=== PATIENT | female | born 1935 | race Caucasian/White ===

== ENCOUNTER → 2018-05-04 | Outpatient (CLI) | payer MEDICARE ==
[2018-05-04 15:54] LABS: HCT 39.5 % (34.0-46.0); HGB 12.6 gm/dL (11.4-16.0); MCH 26.8 pg (25.0-35.0); MCHC 31.8 g/dL (31.0-37.0); MCV 84.3 fL (80.0-100.0); Mean Platelet Volume 7.6; Platelet Count 270 k/uL (150-450); RBC 4.68 m/uL (3.80-5.40); RDW 13.7 % (11.5-15.5); WBC 6.5 k/uL (3.8-10.6)
[2018-05-04 16:07] LABS: Partial Thromboplastin Time 24.9 sec (22.0-30.0); Prothrombin Time 10.1 sec (9.0-12.0)
[2018-05-04 16:08] LABS: Appearance,Urine Clear (Clear); Bilirubin,Urine Negative (Negative); Blood,Urine Negative (Negative); Color,Urine Light Yellow; Glucose,Urine (UA) Negative (Negative); Ketones,Urine Negative (Negative); Leukocyte Esterase,Urine Negative (Negative); Nitrite,Urine Negative (Negative); Protein,Urine Negative (Negative); Specific Gravity,Urine 1.007 (1.001-1.035); Urobilinogen,Urine <2.0 mg/dL (<2.0)
[2018-05-04 16:12] LABS: Albumin 4.3 g/dL (3.5-5.0); Calcium 9.7 mg/dL (8.4-10.2); Potassium 5.3 mmol/L (3.5-5.1); Total Bilirubin 0.3 mg/dL (0.2-1.3); Total Protein 8.1 g/dL (6.3-8.2)
== END | disposition home or self-care (01) ==
LOC: LABPAT 14:55
PROVIDERS: ATTEND Orthopaedic Surgery
DX: Z01.818 Encounter for other preprocedural examination (principal); Z01.812 Encounter for preprocedural laboratory examination
CPT/HCPCS: 80053; 81003; 85027; 85610; 85730; 87070; 93005

== ENCOUNTER → 2018-05-18 | Outpatient (CLI) | payer MEDICARE ==
--- NOTE | 2018-05-18 12:32 | ECHOF ---
Referral Reason:R94.31 abnormal EKG MEASUREMENTS -------- HEIGHT: 157.5 cm WEIGHT: 56.7 kg BP: RVIDd: 2.3 cm (< 3.3) IVSd: 1.2 cm (0.6 - 1.1) LVIDd: 3.5 cm (3.9 - 5.3) LVPWd: 1.3 cm (0.6 - 1.1) IVSs: 1.4 cm LVIDs: 2.2 cm LVPWs: 1.2 cm LA Diam: 3.1 cm (2.7 - 3.8) LAESV Index (A-L): 26.53 ml/m Ao Diam: 3.3 cm (2.0 - 3.7) AV Cusp: 2.0 cm (1.5 - 2.6) LA Diam: 3.2 cm (2.7 - 3.8) MV EXCURSION: 11.540 mm (> 18.000) MV EF SLOPE: 46 mm/s (70 - 150) EPSS: 0.6 cm MV E Chas: 0.55 m/s MV DecT: 380 ms MV A Chas: 1.15 m/s MV E/A Ratio: 0.47 AR PHT: 699 ms RAP: 5.00 mmHg RVSP: 30.63 mmHg FINDINGS -------- Sinus rhythm. This was a technically good study. The left ventricular size is normal. There is mild concentric left ventricular hypertrophy. Overa ll left ventricular systolic function is low-normal with, an EF between 50 - 55 %. The right ventricle is normal in size. The left atrial size is normal. The right atrial size is normal. There is moderate aortic valve sclerosis. There is moderate aortic regurgitation. The mitral valve leaflets are mild to moderately thickened. Mild mitral annular calcification pres ent. Mild mitral regurgitation is present. Mild tricuspid regurgitation present. There is no evidence of pulmonary hypertension. The right v entricular systolic pressure, as measured by Doppler, is 30.63mmHg. There is no pulmonic regurgitation present. The aortic root size is normal. There is no pericardial effusion. CONCLUSIONS -------- 1. Sinus rhythm. 2. The left ventricular size is normal. 3. There is mild concentric left ventricular hypertrophy. 4. Overall left ventricular systolic function is low-normal with, an EF between 50 - 55 %. 5. The left atrial size is normal. 6. There is moderate aortic valve sclerosis. 7. There is moderate aortic regurgitation. 8. The mitral valve leaflets are mild to moderately thickened. 9. Mild mitral annular calcification present. 10. Mild mitral regurgitation is present. 11. Mild tricuspid regurgitation present. 12. There is no evidence of pulmonary hypertension. 13. There is no pulmonic regurgitation present. 14. The aortic root size is normal. 15. There is no pericardial effusion. RN QUALITY: Guera Duke RDCS
== END | disposition home or self-care (01) ==
LOC: RADECHMAIN 07:10
PROVIDERS: ATTEND Family Medicine
DX: I08.3 Combined rheumatic disorders of mitral, aortic and tricuspid valves (principal)
CPT/HCPCS: 93306

== ENCOUNTER 2018-05-23 08:22 | Inpatient (IN) | payer MEDICARE ==
[2018-05-16 14:55] VITALS: BMI 22.8
[~2018-05-23 08:22] MED LIST: ACETAMINOPHEN TAB 500 MG TAB PO ONE; DEXAMETHASONE SOD PHOSPHATE 10 MG/ML 1 ML VIAL IV ONE; LIDOCAINE 1% 20 ML VIAL (10MG/ML) FOR IV START INTRADERMA PRN; MELOXICAM 7.5 MG TAB PO ONE; ONDANSETRON 4 MG/2 ML VIAL IVP ONE; ROPIVACAINE 246.25 MG, EPINEPHrine 0.5 MG, KETOROLAC 30 MG, cloNIDine HCL/PF 80 MCG, WA... MISCELLANE ONE; TRANEXAMIC ACID 1,000 MG in SODIUM CHLORIDE 0.9% 50 ML IVPB ONE; ceFAZolin IN SWFI 2 GM/20 ML SYRINGE IVP ONE; fentaNYL (PF) 50 MCG/ML 2 ML AMP IV PRN
[2018-05-23] MEDS: LACTATED RINGERS 1,000 ML IV SCH (08:50)
[2018-05-23] MEDS ORDERED: SODIUM CHLORIDE 0.9% 100 ML BAG ONE (11:06)
[2018-05-23] MEDS ORDERED: fentaNYL (PF) 50 MCG/ML 2 ML AMP ONE (11:06)
[2018-05-23] MEDS ORDERED: MIDAZOLAM 2 MG/2 ML VIAL ONE (11:06)
[2018-05-23] MEDS ORDERED: ePHEDrine SULFATE/0.9% NACL/PF 50 MG/5 ML SYRINGE IV ONE (11:06)
[2018-05-23] MEDS ORDERED: TRANEXAMIC ACID 1,000 MG/10 ML VIAL ONE (11:06)
[2018-05-23] MEDS ORDERED: ceFAZolin 3,000 MG in SODIUM CHLORIDE 0.9% IRRIGATIO 3,000 ML IRRIGATION ONE (11:40)
[2018-05-23] MEDS ORDERED: LACTATED RINGERS 1,000 ML IV ONE (12:16)
--- NOTE | 2018-05-23 12:27 | P.OP ---
Date of Procedure: 05/23/18 Preoperative Diagnosis: Severe osteoarthritis right hip Postoperative Diagnosis: Severe osteoarthritis right hip Procedure(s) Performed: Right total hip arthroplasty with a direct anterior approach Implants: Rose and nephew Polarstem size 3 standard Rose & Nephew R3, 3 hole acetabular shell, 48 mm Rose & Nephew reflection 6.5 mm cancellus screw, 20 mm 2 Rose & Nephew R3, XLPE 20 acetabular liner Rose & Nephew Oxinium femoral head 32 m, +0 All components were press-fit. The articulation is Oxinium on polyethylene. Anesthesia: spinal Surgeon: Froy Collins Monument Setter Helper #1: Priya Arriaga Estimated Blood Loss (ml): 200 Pathology: other (Femoral head) Condition: stable Disposition: PACU Indications for Procedure: After failure of conservative treatment we discussed the surgical and nonsurgical treatment options at length. Patient wishes to proceed with a total hip arthroplasty with a direct anterior approach. Complications specific to this procedure were discussed at length, including but not limited to infection, leg length discrepancy, dislocation, and nerve injury. Patient is aware of all these complications and informed consent was obtained Operative Findings: The operative findings are consistent with severe osteoarthritis of the right hip Description of Procedure: Patient was seen and evaluated in the preoperative area, consent was reviewed, and the surgical site was marked with a skin marker. Patient was then brought to the operating room and given prophylactic antibiotics intravenously. 1 g of Tranexamic acid was also given. A spinal anesthetic was administered by the anesthesia department. The patient was then placed on the Nunn table with the bony prominences well-padded. The hip area was then prepped and draped in usual sterile fashion. A universal timeout was then performed, which confirmed the patient's name, surgical site, ALLERGIES, and procedure being performed. Next the incision site was located at 1 cm distal and 1 cm lateral to the anterior superior iliac spine. The skin and subcutaneous tissues were sharply incised. Incision was carefully dissected down to the fascia overlying the tensor fascia harjit muscle. This fascia was then incised in line with the incision. Next, using blunt finger dissection, the tensor fascia harjit muscle was dissected off its investing fascia. The muscle was then carefully retracted laterally with a cobra retractor over the lateral neck of the femur. Next, the circumflex vessels were identified and cauterized using the AquaMantis device. The anterior hip capsule was then exposed. The capsule was then opened and an inverted T fashion. Cobra retractors were then placed intracapsularly. The proximal femur was then visualized. The femoral neck was then osteotomized appropriate level above the lesser trochanter. Small amount of traction was placed with the Nunn table. A small wedge of bone was then removed from the remaining femoral head. Next, using a corkscrew femoral head was easily removed from the acetabulum. On gross visual inspection, the femoral head had complete loss of articular cartilage in multiple periarticular osteophytes. Attention was then turned to the acetabulum. the acetabulum was exposed and any remaining labrum was excised. Sequential reaming of the acetabulum was performed using fluoroscopic guidance. When the appropriate size was reached, a trial was then placed. The position and fit of the trial was checked with fluoroscopy. The trial was then removed. Then, using fluoroscopic guidance, the final implant was impacted at 20 of anteversion and 40 of abduction, and fully seated in the acetabulum. 2 screws were then placed in the acetabulum. Again fluoroscopy was used to check position of the screws. Next, the liner was then impacted, with a 20 elevated liner located in the anterior superior quadrant. Component locking was confirmed. Attention was then directed to the femur. With the aid of the Nunn table, the femur was externally rotated to approximately 130, extended, and abducted under the opposite leg. A side hook was then placed under the proximal femur, and the side hook elevator was used to elevate the proximal femur. Retractors were then placed. A capsular release was performed, as well as a release of the conjoined tendon, which afforded excellent visualization of the proximal femur. Next, a box osteotome was used to lateralize the proximal femur. A displayer merchandise was then used to locate the femoral canal. Sequential broaching was then performed with appropriate size which afforded excellent fixation in the proximal femur. A trial was then placed with appropriate head and neck, and the hip was gently reduced with the aid of the Nunn table. Fluoroscopy was then used to check position of the components, as well as to ensure equal leg lengths. The hip was then gently dislocated and the trials were then removed. Final implants were then impacted and the hip was again reduced. Final fluoroscopic x-rays confirmed that the components were in anatomic position, as well as equal leg lengths. The hip was also taken through range of motion, and found to be stable. The hip was then copiously irrigated with antibiotic solution with pulsatile lavage. The hip was then irrigated with Irrisept solution. The soft tissues were then injected with a ropivacaine solution, which consisted of 246.25 mg of ropivacaine, 0.5 mg of epinephrine, 30 mg of Toradol, 80 g of clonidine, and 48.45 mL of sterile water, for a total of 100 mL of fluid injected. A second dose of 1 g of Tranexamic acid was also given. the fascia was then closed with 2-0 strata fix suture. The subcutaneous tissue was closed with 3-0 Vicryl. The subcuticular tissue was closed with 3-0 strata fix suture. The skin was then closed with Dermabond glue and a sterile silver dressing. The patient was then transferred to the recovery room in stable condition. The recreation assistant MARYCHUY Olson was required due to the complexity of surgery, and the need for skilled virtual customer assistant for positioning, draping, exposure, retraction, and closure of the wound.
--- NOTE | 2018-05-23 12:50 | XR ---
Fluoroscopy INDICATION: Pain FINDINGS: Fluoroscopy time: 41 seconds. Images obtained: 4. IMPRESSIONS: 1. Documentation of fluoroscopy.
[2018-05-23] MEDS ORDERED: NALOXONE 0.4 MG/ML 1 ML VIAL IV PRN (12:54)
[2018-05-23] MEDS ORDERED: HYDROcodone/APAP 5-325MG 1 EACH TAB PO PRN (12:54)
[2018-05-23] MEDS ORDERED: HYDROmorphone 1 MG/ML 1 ML SYRINGE IVP PRN ×3 (12:54)
[2018-05-23] MEDS ORDERED: MAGNESIUM HYDROXIDE 2,400 MG/10 ML CUP PO PRN (12:54)
[2018-05-23] MEDS ORDERED: hydrOXYzine PAMOATE 25 MG CAP PO PRN (12:54)
[2018-05-23] MEDS ORDERED: DIAZEPAM 5 MG TAB PO PRN ×2 (12:54)
[2018-05-23] MEDS ORDERED: ONDANSETRON 4 MG/2 ML VIAL IVP PRN (12:54)
--- NOTE | 2018-05-23 13:43 | XR ---
EXAMINATION TYPE: XR Hip Limited RT DATE OF EXAM: 05/23/2018 COMPARISON: None HISTORY: Postop right hip TECHNIQUE: AP right hip FINDINGS: No acute fractures are evident. Postsurgical changes are present. Right hip prosthesis has been placed. IMPRESSION: 1. No fractures post hip replacement
[2018-05-23] MEDS: SODIUM CHLORIDE 0.9% 1,000 ML IV SCH (16:46)
--- NOTE | 2018-05-23 18:40 | P.CONS ---
History of Present Illness - Reason for Consult Consult date: 05/23/18 HTN Requesting physician: Froy Collins - Chief Complaint right hip pain - History of Present Illness Patient is an 82-year-old female with a history of hypertension, arthritis, bladder weakness, and intermittent vertigo who presented to the hospital for an elective right total hip arthroplasty. She had underwent an anterior approach right total hip arthroplasty on 05/23 without any immediate postoperative complications. Patient seen and examined at bedside. Her pain is well controlled after surgery. She denies any nausea or shortness of breath. She had has been noticing right hip pain for the last several years which has increased in the last couple of months. She then noticed decreased strength in her right lower extremity which prompted her to undergo a course of physical therapy. This did not help so she elected operative repair. She has been taking as needed Tylenol at home but states she's only taken 2 doses in the last 2 weeks. She is very sensitive to medications. She denies any recent cough, cold, fever, flu , chest pain, shortness of breath, nausea, vomiting, diarrhea, or constipation. She does have chronic bladder weakness but no dysuria, malodorous urine, or dark urine. She follows with Dr. Barnes out of [place]. She last saw him one week prior to surgery. Review of Systems Pertinent positives and negatives as discussed in HPI, a complete review of systems was performed and all other systems are negative. Past Medical History Past Medical History: Hypertension, Osteoarthritis (OA) Additional Past Medical History / Comment(s): hx. rheumatic fever as a child, occasional vertigo, arthritis, bladder weakness History of Any Multi-Drug Resistant Organisms: None Reported Past Surgical History: Tonsillectomy Additional Past Surgical History / Comment(s): cataract surg, right total hip arthroplasty-anterior approach Past Anesthesia/Blood Transfusion Reactions: No Reported Reaction Past Psychological History: No Psychological Hx Reported Smoking Status: Never smoker Past Alcohol Use History: None Reported Past Drug Use History: None Reported Additional History: Lives alone, no assistive devices, along with 1/2 mile from her house. - Past Family History Father Family Medical History: Cancer Medications and Allergies Home Medications Medication Instructions Recorded Confirmed Type Aspirin 81 mg PO DAILY 05/16/18 05/23/18 History Atenolol [Tenormin] 100 mg PO DAILY 05/16/18 05/23/18 History Cholecalciferol [Vitamin D3] 1,000 unit PO DAILY 05/16/18 05/23/18 History Meclizine [Antivert] 25 mg PO DAILY PRN 05/16/18 05/23/18 History Niacin 100 mg PO DAILY 05/16/18 05/23/18 History amLODIPine [Norvasc] 2.5 mg PO DAILY 05/16/18 05/23/18 History Allergies Allergy/AdvReac Type Severity Reaction Status Date / Time doxycycline Allergy Rash/Hives Verified 05/23/18 08:36 Physical Exam Osteopathic Statement: *. No significant issues noted on an osteopathic structural exam other than those noted in the History and Physical/Consult. Vitals: Vital Signs Temp Pulse Pulse Resp BP Pulse Ox 05/23/18 15:36 97.5 F L 73 16 133/70 91 L 05/23/18 14:50 67 18 119/61 96 05/23/18 14:35 66 18 108/58 97 05/23/18 14:05 66 18 109/58 97 05/23/18 13:50 70 18 104/54 97 05/23/18 13:35 69 18 110/57 99 05/23/18 13:20 62 16 115/58 96 05/23/18 13:05 66 16 113/54 99 05/23/18 12:50 98.2 F 67 12 124/58 100 05/23/18 08:42 97.7 F 69 16 180/89 96 Intake and Output 05/23/18 05/23/18 05/23/18 06:59 14:59 22:59 Intake Total 1101 750 Output Total 200 Balance 901 750 Intake: IV 1101 750 Output: Estimated Blood Loss 200 Other: Weight 56.699 kg General: non toxic, no distress, appears younger than stated age, normal weight Derm: Dressing in place over right hip no unusual rashes/lesions no unusual ecchymoses, warm, dry Head: atraumatic, normocephalic, symmetric Eyes: EOMI, no lid lag, anicteric sclera, pupils equal round reactive to light ENT: Nose and ears atraumatic, no thrush, no pharyngeal erythema Neck: No thyromegaly, no cervical lymphadenopathy, trachea midline, supple Mouth: no lip lesion, mucus membranes moist Cardiovascular: S1S2 reg, no murmur, positive posterior tibial pulse bilateral, no edema, capillary refill less than 2 seconds Lungs: CTA bilateral, no rhonchi, no rales , no accessory muscle use Abdominal: soft, nontender to palpation, no guarding, no appreciable organomegaly, normal bowel sounds Ext: no gross muscle atrophy, strength 5 out of 5 in bilateral upper extremities , strength 5 out of 5 in left lower extremity, not tested in right lower extremity secondary to recent surgery, no contractures, Neuro: CN II-XI grossly intact, light touch intact all 4 extremities, finger to nose within normal limits, Psych: Alert, oriented, appropriate affect Results CBC & Chem 7: 05/23/18 08:48 Comments: Preoperative blood work were reviewed. Hemoglobin 12.6. Hematocrit 39.5. Platelets 270 Assessment and Plan Assessment: Osteoarthritis -Status post anterior approach right total hip arthroplasty -Pain control -Antiemetics -PT/OT -DVT prophylaxis per orthopedic surgery -Bowel regiment Hypertension, controlled -Follow blood pressures -Resume home Norvasc and atenolol DVT prophylaxis: Aspirin 325 mg twice a day Discussed with: pt, Nursing Anticipated discharge: 24-[address]: Home with home health A total of 45 minutes was spent on the care of this complex patient more than 50 % of the time was spent in counseling and care coordination.
[2018-05-23] MEDS: HYDROcodone/APAP 5-325MG 1 EACH TAB PO PRN (19:02)
[2018-05-23] MEDS: ceFAZolin IN SWFI 2 GM/20 ML SYRINGE IVP SCH (19:02)
[2018-05-23] MEDS: ASPIRIN 325 MG TAB PO SCH (20:50)
[2018-05-23] MEDS ORDERED: SENNOSIDES-DOCUSATE SODIUM 1 EACH TAB PO SCH (21:00)
[2018-05-24] MEDS: ceFAZolin IN SWFI 2 GM/20 ML SYRINGE IVP SCH (03:15)
[2018-05-24] MEDS: SODIUM CHLORIDE 0.9% 1,000 ML IV SCH (07:31)
[2018-05-24] MEDS: LACTATED RINGERS 1,000 ML IV SCH (07:32)
[2018-05-24 07:41] VITALS: BP 109/59; PULSE 68; RESP 16; TEMP 97.4
[2018-05-24 07:52] LABS: Basophils % (A) 0 %; Eosinophils % (A) 0 %; HCT 29.1 % (34.0-46.0); HGB 9.5 gm/dL (11.4-16.0); Lymphocytes # (A) 1.1 k/uL (1.0-4.8); Lymphocytes % (A) 11 %; MCH 28.2 pg (25.0-35.0); MCHC 32.8 g/dL (31.0-37.0); MCV 85.9 fL (80.0-100.0); Mean Platelet Volume 8.4; Monocytes # (A) 0.6 k/uL (0-1.0); Monocytes % (A) 6 %; Neutrophils # (A) 7.9 k/uL (1.3-7.7); Neutrophils % (A) 81 %; Platelet Count 199 k/uL (150-450); RBC 3.39 m/uL (3.80-5.40); RDW 13.7 % (11.5-15.5); WBC 9.8 k/uL (3.8-10.6)
[2018-05-24 07:56] LABS: Calcium 8.4 mg/dL (8.4-10.2); Potassium 4.7 mmol/L (3.5-5.1)
--- NOTE | 2018-05-24 08:39 | P.DS ---
Providers Date of admission: 05/23/18 08:22 Expected date of discharge: 05/24/18 Attending physician: Froy Collins Consults: 05/23/18 12:54 Consult Physician Routine Consulting Provider: Kimi Skinner Consult Reason/Comments: medical management Do you want consulting provider notified?: Already Contacted Primary care physician: Leisa Rmoero - Discharge Diagnosis(es) (1) Primary osteoarthritis of right hip Current Visit: Yes Status: Acute (2) S/P total hip arthroplasty Current Visit: Yes Status: Acute Hospital Course: This is a 82-year-old female with known history of degenerative arthritis of the right hip. The patient presents for evaluation. After discussion and consideration patient elects to proceed with total hip arthroplasty. The patient is seen preoperatively by Dr. Collins and medically cleared for surgery by their primary care physician. Patient is admitted to [facility] on 05/23/2018 for total hip arthroplasty. The procedures performed without complication or sequelae. The patient is doing well postoperatively. Labs and vital signs are stable on day of discharge. On day of discharge patient's hip incision is healing well. There is minimal erythema. There is no drainage noted at this time. There is minimal soft tissue swelling to the hip and thigh. Patient has full foot and ankle motion without difficulty or pain. Neurovascular status to the right lower extremity is intact. Patient is discharged home in good condition. Please see med rec for accurate list of home medications. Plan - Discharge Summary Discharge Rx Participant: No New Discharge Prescriptions: New Aspirin 325 mg PO BID #60 tab Sennosides [Senokot] 1 tab PO BID #60 tablet HYDROcodone/APAP 5-325MG [[place] 5-325] 1 - 2 tab PO Q4-6H PRN #84 tab PRN Reason: Pain No Action Cholecalciferol [Vitamin D3] 1,000 unit PO DAILY amLODIPine [Norvasc] 2.5 mg PO DAILY Atenolol [Tenormin] 100 mg PO DAILY Aspirin 81 mg PO DAILY Niacin 100 mg PO DAILY Meclizine [Antivert] 25 mg PO DAILY PRN PRN Reason: Vertigo Discharge Medication List Aspirin 81 mg PO DAILY 05/16/18 [History] Atenolol [Tenormin] 100 mg PO DAILY 05/16/18 [History] Cholecalciferol [Vitamin D3] 1,000 unit PO DAILY 05/16/18 [History] Meclizine [Antivert] 25 mg PO DAILY PRN 05/16/18 [History] Niacin 100 mg PO DAILY 05/16/18 [History] amLODIPine [Norvasc] 2.5 mg PO DAILY 05/16/18 [History] Aspirin 325 mg PO BID #60 tab 05/24/18 [Rx] HYDROcodone/APAP 5-325MG [[place] 5-325] 1 - 2 tab PO Q4-6H PRN #84 tab 05/24/18 [ Rx] Sennosides [Senokot] 1 tab PO BID #60 tablet 05/24/18 [Rx] Follow up Appointment(s)/Referral(s): Froy Collins DO [Doctor of Osteopathic Medicine] - 2 Weeks Activity/Diet/Wound Care/Special Instructions: Weightbearing as tolerated with walker Leave dressing intact. Dressing may be removed by home care nurse in 10 days. May shower with dressing on. Follow-up with [facility] in 2 weeks, please call with any questions or concerns [phone] Discharge Disposition: HOME WITH HOME HEALTH SERVICES
[2018-05-24] MEDS ORDERED: amLODIPine 2.5 MG TAB PO SCH (09:00)
[2018-05-24] MEDS ORDERED: ATENOLOL 50 MG TAB PO SCH (09:00)
[2018-05-24] MEDS ORDERED: MELOXICAM 7.5 MG TAB PO SCH (09:00)
[2018-05-24] MEDS: ASPIRIN 325 MG TAB PO SCH (09:02)
[2018-05-24] MEDS: HYDROcodone/APAP 5-325MG 1 EACH TAB PO PRN (09:02)
--- NOTE | 2018-05-24 09:31 | P.PN ---
Subjective Progress Note Date: 05/24/18 Principal diagnosis: hip pain Patient is an 82-year-old female with a history of hypertension, arthritis, bladder weakness, and intermittent vertigo who presented to the hospital for an elective right total hip arthroplasty. She had underwent an anterior approach right total hip arthroplasty on 05/23 without any immediate postoperative complications. Seen and examined at bedside. She is feeling well. She is already on drops and has ambulated with physical therapy. Pain is well controlled. No nausea, vomiting, chest pain, or shortness of breath. Still has not had a bowel movement since surgery. We discussed that her blood pressure was slightly low this morning. I have given her instructions to take her blood pressure every morning prior to taking her medications. If her blood pressure is less than 120 she will only take her atenolol. If is greater than 120 she'll take both her atenolol and Norvasc. She will also take 14 days old sulfate 325 mg to help replete her iron answer hemoglobin is 9.5 postoperatively. Objective - Vital Signs Vital signs: Vital Signs Temp 97.4 F L 05/24/18 07:40 Pulse 68 05/24/18 07:40 Resp 16 05/24/18 07:40 BP 109/59 05/24/18 07:40 Pulse Ox 97 05/24/18 07:40 Intake & Output 05/23/18 05/24/18 05/24/18 18:59 06:59 18:59 Intake Total 1851 1725 Output Total 200 Balance 1651 1725 Weight 56.699 kg Intake: IV 1851 Intake, IV Titration 975 Amount Sodium Chloride 0.9% 1, 975 000 ml @ 65 mls/hr IV . [id number] ON LICENSE OF [facility] Rx#:[id number] Oral 750 Output: Estimated Blood Loss 200 Other: Voiding Method Toilet Toilet # Voids 2 - Exam General: non toxic, no distress, appears younger than stated age Derm: warm, dry Head: atraumatic, normocephalic, symmetric Eyes: EOMI, no lid lag, anicteric sclera Mouth: no lip lesion, mucus membranes moist Cardiovascular: S1S2 reg, no murmur, positive posterior tibial pulse bilateral, Lungs: CTA bilateral, no rhonchi, no rales , no accessory muscle use Abdominal: soft, nontender to palpation, no guarding, no appreciable organomegaly Ext: no gross muscle atrophy, no edema, no contractures Neuro: CN II-XI grossly intact, no focal neuro deficits Psych: Alert, oriented, appropriate affect - Labs CBC & Chem 7: 05/24/18 06:59 05/24/18 06:59 Labs: Abnormal Lab Results - Last 24 Hours (Table) 05/24/18 05/24/18 Range/Units 06:59 06:59 RBC 3.39 L (3.80-5.40) m/uL Hgb 9.5 L (11.4-16.0) gm/dL Hct 29.1 L (34.0-46.0) % Neutrophils # 7.9 H (1.3-7.7) k/uL BUN 25 H (7-17) mg/dL Creatinine 1.12 H (0.52-1.04) mg/dL Assessment and Plan Assessment: Osteoarthritis -Status post anterior approach right total hip arthroplasty -Pain control -Antiemetics -PT/OT -DVT prophylaxis per orthopedic surgery -Bowel regiment Hypertension, slightly low today -Follow blood pressures -Hold atenolol, resume Norvasc. Acute blood loss anemia, expected outcome of surgery -Ferrous sulfate 325 mg oral once daily. Instructions added to discharge: Take your blood pressure in the morning for the next 4 days if it is less than 120 take your tenormin only, if your blood pressure is greater than 120 take both your tenormin and norvasc. Take Ferrous sulfate 325mg daily for the next 14 days. Once your have completed the aspirin 325 mg twice daily please resume your aspirin 81 mg daily. Medically stable for discharge. DVT prophylaxis: Aspirin 325 mg twice a day Discussed with: pt, Nursing Anticipated discharge: today A total of 30 minutes was spent on the care of this complex patient more than 50 % of the time was spent in counseling and care coordination.
== END 2018-05-24 14:34 | disposition home health service (06) | DRG 470 ==
LOC: 2ORMAIN 08:22 → 3SUR 15:14
PROVIDERS: ADMIT Orthopaedic Surgery; ATTEND Orthopaedic Surgery
PROC: 30233N0 Transfusion of Autologous Red Blood Cells into Peripheral Vein, Percutaneous Approach (ICD-10-PCS; 2018-05-23)
PROC: 0SR906A Replacement of Right Hip Joint with Oxidized Zirconium on Polyethylene Synthetic Substitute, Uncemented, Open Approach (ICD-10-PCS; principal; 2018-05-23 10:30)
DX: M16.11 Unilateral primary osteoarthritis, right hip (principal); D62 Acute posthemorrhagic anemia; M06.9 Rheumatoid arthritis, unspecified; I10 Essential (primary) hypertension; Z79.82 Long term (current) use of aspirin; Z79.899 Other long term (current) drug therapy; Z86.19 Personal history of other infectious and parasitic diseases; Z98.49 Cataract extraction status, unspecified eye; Z88.1 Allergy status to other antibiotic agents; Z82.49 Family history of ischemic heart disease and other diseases of the circulatory system
CPT/HCPCS: 36415; 73501; 80048; 84132; 85025; 86850; 86900; 86901; 88300

== ENCOUNTER 2018-10-20 23:12 | Emergency (ER) | payer MEDICARE ==
--- NOTE | 2018-10-21 00:44 | XR ---
EXAMINATION TYPE: XR hand complete RT DATE OF EXAM: 10/21/2018 COMPARISON: NONE HISTORY: Pain TECHNIQUE: 3 views FINDINGS: There is narrowing and spurring at the first carpometacarpal joint. There is a anterior dis location of the first MP joint. I see no definite fracture. There is some subluxation deformity at th e second and third MP joints that could relate to inflammatory arthritis. There is narrowing and spur ring at the DIP joints with erosions. IMPRESSION: Dislocated first MP joint. Arthritic changes that could relate to erosive type osteoarthritis.
[2018-10-21] MEDS ORDERED: LIDOCAINE 1% INJ 10MG/ML (20 ML MDV) SQ ONE (00:51)
--- NOTE | 2018-10-21 00:58 | ED ---
Upper Extremity HPI - General Chief Complaint: Extremity Injury, Upper Stated Complaint: thumb injury Time Seen by Provider: 10/20/18 23:42 Source: patient Mode of arrival: wheelchair Limitations: no limitations - History of Present Illness MD Complaint: Injury to:: right, hand -: hour(s) Other Extremity Injury: Hand: Right Other Injuries: none Handedness: left Place: outdoors Improves With: immobilization Worsens With: movement of extremity Context: fall Associated Symptoms: denies other symptoms Treatments Prior to Arrival: bandage - Related Data Home Medications Medication Instructions Recorded Confirmed Aspirin 81 mg PO DAILY 05/16/18 05/23/18 Atenolol [Tenormin] 100 mg PO DAILY 05/16/18 05/23/18 Cholecalciferol [Vitamin D3] 1,000 unit PO DAILY 05/16/18 05/23/18 Meclizine [Antivert] 25 mg PO DAILY PRN 05/16/18 05/23/18 Niacin 100 mg PO DAILY 05/16/18 05/23/18 amLODIPine [Norvasc] 2.5 mg PO DAILY 05/16/18 05/23/18 Previous Rx's Medication Instructions Recorded Aspirin 325 mg PO BID #60 tab 05/24/18 Ferrous Sulfate [Feosol] 325 mg PO DAILY #30 tab 05/24/18 HYDROcodone/APAP 5-325MG [[place] 1 - 2 tab PO Q4-6H PRN #84 tab 05/24/18 5-325] Sennosides [Senokot] 1 tab PO BID #60 tablet 05/24/18 Allergies Allergy/AdvReac Type Severity Reaction Status Date / Time doxycycline Allergy Rash/Hives Verified 10/20/18 23:25 Review of Systems ROS Statement: Those systems with pertinent positive or pertinent negative responses have been documented in the HPI. ROS Other: All systems not noted in ROS Statement are negative. Respiratory: Denies: dyspnea Cardiovascular: Denies: chest pain, syncope Gastrointestinal: Denies: abdominal pain, vomiting, diarrhea Musculoskeletal: Reports: as per HPI, arthralgia Skin: Denies: rash Neurological: Denies: headache, weakness, numbness Past Medical History Past Medical History: Hypertension, Osteoarthritis (OA) Additional Past Medical History / Comment(s): hx. rheumatic fever as a child, occasional vertigo, arthritis, bladder weakness History of Any Multi-Drug Resistant Organisms: None Reported Past Surgical History: Tonsillectomy Additional Past Surgical History / Comment(s): cataract surg, right total hip arthroplasty-anterior approach Past Anesthesia/Blood Transfusion Reactions: No Reported Reaction Past Psychological History: No Psychological Hx Reported Smoking Status: Never smoker Past Alcohol Use History: None Reported Past Drug Use History: None Reported - Past Family History Father Family Medical History: Cancer General Exam Limitations: no limitations General appearance: alert, in no apparent distress Head exam: Present: atraumatic, normocephalic Cardiovascular Exam: Present: other (Capillary refill normal. Radial pulses are strong and symmetric) Right Elbow exam: Present: normal inspection Forearm Wrist exam: Present: normal inspection Hand Wrist exam: Present: tenderness, swelling, ecchymosis, dislocation (Right thumb appears dislocated at the MCP joint). Absent: full ROM Neuro motor exam: Present: wrist extension intact Neurosensory exam: Present: radial nerve intact, ulnar nerve intact, median nerve intact Vascular: Present: normal capillary refill Neurological exam: Present: alert. Absent: motor sensory deficit Skin exam: Present: warm, dry, intact Course Vital Signs 10/20/18 10/21/18 23:21 01:35 Temperature 98.3 F 98.0 F Pulse Rate 64 71 Respiratory 16 17 Rate Blood Pressure 159/88 139/74 O2 Sat by Pulse 95 98 Oximetry Procedures - Orthopedic Joint Reduction Joint #1 Consent Obtained: written consent Side: right Joint Reduction Location: finger Analgesia: hematoma block Local Anesthetic Used: Lidocaine 1% Amount of Anesthetic Used (mLs): 2 Technique Used: traction/counter-traction Post-Reduction Neuro Exam: intact Post-Reduction Vascular Exam: intact Post Reduction X-Ray Obtained: Yes Post Reduction X-Ray Results: reduced Splint Applied: Yes Patient Tolerated Procedure: well, no complications Disposition Clinical Impression: Thumb dislocation Disposition: HOME SELF-CARE Condition: Good Instructions (If sedation given, give patient instructions): Finger Dislocation (ED) Is patient prescribed a controlled substance at d/c from ED?: No Referrals: Leisa Romero DO [Primary Care Provider] - 1-2 days Alvarez Collins DO [Doctor of Osteopathic Medicine] - 1-2 days
[2018-10-21 01:46] VITALS: BP 139/74; PULSE 71; RESP 17; TEMP 98
--- NOTE | 2018-10-21 01:49 | XR ---
EXAMINATION TYPE: XR hand complete RT DATE OF EXAM: 10/21/2018 COMPARISON: Today HISTORY: Post reduction TECHNIQUE: Single view FINDINGS: There is anatomic reduction of the first MP joint. I see no fracture line. IMPRESSION: Anatomic reduction. No complicating process seen.
== END 2018-10-21 01:40 | disposition home or self-care (01) ==
LOC: EC 23:12
DX: S63.114A Dislocation of metacarpophalangeal joint of right thumb, initial encounter (principal); I10 Essential (primary) hypertension; M19.90 Unspecified osteoarthritis, unspecified site; Z79.82 Long term (current) use of aspirin; Z79.899 Other long term (current) drug therapy; Z88.1 Allergy status to other antibiotic agents; Z96.641 Presence of right artificial hip joint; W19.XXXA Unspecified fall, initial encounter
CPT/HCPCS: 73130; 99283; 26700; J2001

== ENCOUNTER → 2019-03-23 | Outpatient (CLI) | payer MEDICARE ==
--- NOTE | 2019-03-23 11:35 | US ---
EXAMINATION TYPE: US kidneys/renal and bladder DATE OF EXAM: 03/23/2019 COMPARISON: NONE CLINICAL HISTORY: 83-year-old female R35.8 Other polyuria, R39.81 Functional urinary. Urinary urgency and incontinence per patient. TECHNIQUE: Multiple sonographic images of the kidneys and bladder are obtained. FINDINGS: EXAM MEASUREMENTS: Right Kidney: 9.0 x 4.8 x 3.4 cm Left Kidney: 8.5 x 4.4 x 4.1 cm Post Void Residual Volume: 1.1 mL Right Kidney: No hydronephrosis. Left Kidney: lateral and superior simple cortical cyst is noted = 0.6 x 0.9 x 0.7cm . No hydronephr osis. Bladder: Incompletely distended Bilateral Jets seen: yes Normal Post Void Residual: yes IMPRESSION: 1. No hydronephrosis. Small 9 mm cortical cyst on the left. 2. Initial partial distention of the bladder limits its evaluation. No sonographic evidence for urina ry retention after voiding.
== END ==
LOC: RADUSWWP 09:34
PROVIDERS: ATTEND Family Medicine
DX: N28.1 Cyst of kidney, acquired (principal); N32.89 Other specified disorders of bladder; R39.81 Functional urinary incontinence; R35.8 Other polyuria
CPT/HCPCS: 76770